=== PATIENT | female | born 1975 | race Caucasian/White ===

== ENCOUNTER 2021-07-31 09:20 | Emergency (ER) | payer MEDICAID ==
[~2021-07-31] VITALS: Ht 172.7 cm; Wt 98.0 kg
[2021-07-31 09:35] VITALS: BP 104/65
[2021-07-31] MEDS ORDERED: methylPREDNISolone SOD SUCC 125 MG/2 ML VL IM ONE (09:45)
== END 2021-07-31 10:43 | disposition home or self-care (01) ==
LOC: ER 09:20
DX: T78.40XA Allergy, unspecified, initial encounter (principal); F17.210 Nicotine dependence, cigarettes, uncomplicated; Z88.0 Allergy status to penicillin; Z88.1 Allergy status to other antibiotic agents; Y92.89 Other specified places as the place of occurrence of the external cause
CPT/HCPCS: 96372; 99283; J2930

== ENCOUNTER 2023-06-04 06:46 | Emergency (ER) | payer MEDICAID ==
[~2023-06-04] VITALS: Ht 172.7 cm; Wt 102.0 kg
[2023-06-04 06:46] VITALS: BP 138/86; PULSE 72; RESP 18; TEMP 98.1; O2SAT 98
[2023-06-04] MEDS ORDERED: IBUPROFEN 600 MG TAB PO ONE (08:00)
[2023-06-04] MEDS ORDERED: TETANUS-DIPTH-ACEL PERTUSSIS 0.5ML SYR Tdap IM ONE (08:00)
[2023-06-04] MEDS ORDERED: LIDOCAINE 1% HCL (LOCAL ANESTH.) INJ 20ML MDV ID ONE (08:00)
[2023-06-04] MEDS ORDERED: CEPH500C PO (08:31)
[2023-06-04] MEDS ORDERED: MUPI2OIN2 EX (08:31)
[2023-06-04] MEDS ORDERED: IBU600T PO (08:31)
== END 2023-06-04 09:21 | disposition home or self-care (01) ==
LOC: ER 06:46
DX: S61.212A Laceration without foreign body of right middle finger without damage to nail, initial encounter (principal); F17.210 Nicotine dependence, cigarettes, uncomplicated; Z88.1 Allergy status to other antibiotic agents; Z88.0 Allergy status to penicillin; Z88.8 Allergy status to other drugs, medicaments and biological substances; W26.0XXA Contact with knife, initial encounter; Y93.89 Activity, other specified; Y92.89 Other specified places as the place of occurrence of the external cause; Y99.8 Other external cause status
CPT/HCPCS: 12002; 90471; 90715; 99283; J2001